=== PATIENT | female | born 1950 ===

== ENCOUNTER → 2024-05-23 | Outpatient (CLI) | payer OTHER ==
[2024-05-23 14:05] LABS: Calcium, Blood 10.8 mg/dL (8.5-10.1); Creatinine, Blood 1.18 mg/dL (0.40-1.00); Potassium, Blood 4.2 mmol/L (3.5-5.5)
== END | disposition home or self-care (01) ==
LOC: LAB SHORT 10:50 → LAB 10:50 → LAB FUT 06-23 09:55
PROVIDERS: Internal Medicine
DX: I12.9 Hypertensive chronic kidney disease with stage 1 through stage 4 chronic kidney disease, or unspecified chronic kidney disease (principal); E11.22 Type 2 diabetes mellitus with diabetic chronic kidney disease; N18.2 Chronic kidney disease, stage 2 (mild); E11.42 Type 2 diabetes mellitus with diabetic polyneuropathy; E78.5 Hyperlipidemia, unspecified; E55.9 Vitamin D deficiency, unspecified
CPT/HCPCS: 36415; 80048; 82306; 83036

== ENCOUNTER 2025-02-24 10:16 | Day surgery (SDC) | payer OTHER ==
[2025-02-25] MEDS ORDERED: LOSA50 PO (08:35)
[2025-02-25] MEDS ORDERED: METF500 PO (08:35)
[2025-02-25] MEDS ORDERED: PARO10 PO (08:36)
[2025-02-25] MEDS ORDERED: METO50 PO (08:36)
[2025-02-25] MEDS ORDERED: ZOCOR20 MG PO (08:37)
[2025-02-25] MEDS ORDERED: INSULANPEN SC (08:37)
[2025-02-25] MEDS ORDERED: DYAZIDE 37.5-21 EACH PO (08:38)
== END 2025-02-24 23:00 | disposition home or self-care (01) ==
LOC: MOI MAM 10:16
DX: C50.511 Malignant neoplasm of lower-outer quadrant of right female breast (principal); Z01.812 Encounter for preprocedural laboratory examination
CPT/HCPCS: 19285; 36415; 77065; 80048; A4648

== ENCOUNTER 2025-02-27 07:48 | Day surgery (SDC) | payer OTHER ==
[~2025-02-27] VITALS: Ht 170.2 cm; Wt 93.3 kg
[2025-02-27] VITALS (8 sets, daily range): BP systolic 123–155; BP diastolic 66–81
[~2025-02-27 07:48] MED LIST: DYAZIDE 37.5-21 EACH PO; INSULANPEN SC; LOSA50 PO; METF500 PO; METO50 PO; PARO10 PO; ZOCOR20 MG PO
[2025-02-27] MEDS ORDERED: CeFAZolin Sodium 2,000 MG in NS 100 ML IV SCH (08:05)
[2025-02-27] MEDS ORDERED: FentaNYL Citrate 50 MCG/ML 2 ML Injection ONE (08:10)
[2025-02-27] MEDS ORDERED: Bupivacaine 0.5% HCl 5 MG/ML 30MLVIAL ONE (08:36)
[2025-02-27] MEDS ORDERED: ePHEDrine Sulfate 50 MG/ML 1ML Injection ONE (09:08)
[2025-02-27] MEDS ORDERED: Ondansetron HCl 2 MG / ML 2ML Vial IV PRN (09:20)
[2025-02-27] MEDS ORDERED: FentaNYL Citrate 50 MCG/ML 2 ML Injection IV PRN ×2 (09:25)
[2025-02-27] MEDS ORDERED: ePHEDrine Sulfate 50 MG/ML 1ML Injection IV PRN (09:25)
[2025-02-27] MEDS ORDERED: Albuterol 2.5 MG/3 ML VIAL INH PRN (09:25)
[2025-02-27] MEDS ORDERED: Ondansetron HCl 2 MG / ML 2ML Vial ONE (09:29)
[2025-02-27] MEDS ORDERED: Dexamethasone Sod Phos 10 MG/ML 1ML VIAL ONE (09:29)
[2025-02-27] MEDS ORDERED: HydrALAZINE HCl 20 MG / ML 1ML Vial IV PRN (09:30)
[2025-02-27] MEDS ORDERED: HYDROcodone 5-APAP 325 TAB PO PRN (09:55)
--- NOTE | 2025-02-27 10:43 | NUR ---
REPORT RECEIVED FROM LEXIS OLSON. VSS. PT ON RA. PT [id number]. PT ABLE TO REPOSITION SELF IN BED. PT REQUESTING PO FLUIDS AND TOLERATING THEM WELL. PT HAS STERI STRIPS/GUAZE TO RIGHT BREAST THAT IS CDI. PT ALSO HAS BREAST BINDER IN PLACE THAT IS CDI. PT DENIES PAIN, NAUSEA OR OTHER DISCOMFORTS.
--- NOTE | 2025-02-27 10:59 | NUR ---
Patient up to Ambulate independently. Gait steady. VSS and consistent with pt baseline. Pt has no complains and verbalizes readiness to go home. Discharge instructions reviewed with patient. Patient verbalizes understanding. Copy given to patient to take home. Dressing to procedure site clean, dry, intact with no visible drainage, swelling, erythema or bruising noted. Patient States Post-Procedure ride home has been arranged. Discharged via wheelchair to private car for ride home. Pt belongings returned to pt.
== END 2025-02-27 11:06 | disposition home or self-care (01) ==
LOC: ORSCMMR 07:48 → ORSCSDS 08:30 → ORD 08:30 → ORSCMMR 08:30
PROVIDERS: Surgery
PROC: 0HBT0ZZ Excision of Right Breast, Open Approach (ICD-10-PCS; principal; 2025-02-27 08:30)
DX: C50.511 Malignant neoplasm of lower-outer quadrant of right female breast (principal); Z17.0 Estrogen receptor positive status [ER+]; Z17.22 Progesterone receptor negative status; Z17.32 Human epidermal growth factor receptor 2 negative status; I12.9 Hypertensive chronic kidney disease with stage 1 through stage 4 chronic kidney disease, or unspecified chronic kidney disease; E13.22 Other specified diabetes mellitus with diabetic chronic kidney disease; N18.9 Chronic kidney disease, unspecified; Z79.4 Long term (current) use of insulin; Z79.84 Long term (current) use of oral hypoglycemic drugs; Z79.899 Other long term (current) drug therapy; E78.5 Hyperlipidemia, unspecified; I25.10 Atherosclerotic heart disease of native coronary artery without angina pectoris; Z86.73 Personal history of transient ischemic attack (TIA), and cerebral infarction without residual deficits
CPT/HCPCS: 76098; 82947; 88307; 88341; 88342; J0690; J1100; J2405; J2704; J3010; J7120